=== PATIENT | male | born 1950 | race Caucasian/White ===

== ENCOUNTER 2019-01-07 22:41 | Emergency (ER) | payer OTHER ==
[~2019-01-07] VITALS: Ht 182.9 cm; Wt 93.9 kg
[2019-01-07] MEDS ORDERED: [UNRECOGNIZED DRUG - REMARK] (23:11)
[2019-01-08] MEDS ORDERED: MEDROLPACK PO (01:56)
[2019-01-08] MEDS ORDERED: ZITHROMAX500 MG PO (01:56)
[2019-01-08] MEDS ORDERED: TUSNEL LIQUID178 ML PO (01:56)
== END 2019-01-08 01:53 | disposition home or self-care (01) ==
LOC: ER 22:41
DX: J06.9 Acute upper respiratory infection, unspecified (principal)